=== PATIENT | male | born 1955 | race Caucasian/White ===

== ENCOUNTER 2017-10-29 14:02 | Observation (INO) | payer OTHER ==
[~2017-10-29] VITALS: Ht 170.2 cm; Wt 102.1 kg
--- NOTE | 2017-10-29 15:42 | ED CARDIAC/CP/PALPITATIONS ---
History of Present Illness General Chief Complaint: Chest Pain Stated Complaint: BACK, SIDE, CP Source: patient Exam Limitations: no limitations Vital Signs & Intake/Output Vital Signs & Intake/Output Vital Signs Date Time Temp Pulse Resp B/P B/P Pulse O2 O2 Flow FiO2 Mean Ox Delivery Rate 10/30 0100 97.7 88 20 149/85 98 Room Air 10/29 2036 96.7 94 20 153/95 97 Room Air 10/29 1812 98.7 100 20 128/80 97 Room Air 10/29 1644 98.7 99 20 136/90 95 Nasal 3.0L Cannula 10/29 1643 95 Room Air 3.0L 10/29 1423 96.5 68 20 160/90 97 Room Air ED Intake and Output 10/30 0000 10/29 1200 Intake Total Output Total Balance Patient 225 lb Weight Weight Reported by Patient Measurement Method Allergies Coded Allergies: MDX - PCN (penicillin) (PCN (PENICILLIN)) (Intermediate, NAUSEA 01/28/13) acetaminophen (From PERCOCET) (NAUSEA 10/29/17) oxycodone (From PERCOCET) (NAUSEA 10/29/17) Triage Note: PT TO ED C/O "BACK SPASMS" X A FEW HOURS. H/O SAME, "WORST I'VE EVER HAD". PAIN RADIATES FROM BACK TO FRONT OF RIGHT CHEST. TOOK 4 ADVIL AT 1000. EKG DONE. Triage Nurses Notes Reviewed? yes Onset: Abrupt Duration: day(s):, constant Timing: recent history Quality/Severity: moderate, severe Location: RIGHT SIDE CHEST, BACK Activities at Onset: none HPI: 62-year-old male comes into the emergency room for further evaluation of right- sided chest pain/right-sided back pain. Patient reports he was doing some heavy lifting yesterday. Been having severe muscle spasm and since yesterday. Hurts with certain movements. Denies any nausea vomiting shortness of breath fever chills cough and vomiting. (Feng Felton) Past History Travel History Traveled to [place] past 21 day No Medical History Any Pertinent Medical History? see below for history Cardiovascular: hypertension, hyperlipidemia Endocrine: diabetes Surgical History Surgical History: non-contributory Psychosocial History What is your primary language Faroese Tobacco Use: Never used ETOH Use: denies use Illicit Drug Use: denies illicit drug use Family History Hx Contributory? No (Feng Felton) Review of Systems Review of Systems Constitutional: Reports: no symptoms. EENTM: Reports: no symptoms. Respiratory: Reports: no symptoms. Cardiovascular: Reports: see HPI. GI: Reports: no symptoms. Genitourinary: Reports: no symptoms. Musculoskeletal: Reports: see HPI. Skin: Reports: no symptoms. Neurological/Psychological: Reports: no symptoms. Hematologic/Endocrine: Reports: no symptoms. Immunologic/Allergic: Reports: no symptoms. All Other Systems: Reviewed and Negative (Feng Felton) Physical Exam Physical Exam General Appearance: well developed/nourished, alert, awake Head: atraumatic, normal appearance Eyes: Bilateral: normal appearance. Ears, Nose, Throat: normal ENT inspection, hearing grossly normal Neck: normal inspection Respiratory: normal breath sounds, no respiratory distress Cardiovascular: regular rate/rhythm Back: normal inspection, right trapezius muscle tenderness Extremities: normal inspection Neurologic/Psych: awake, alert, oriented x 3 Skin: intact, normal color Core Measures ACS in differential dx? No CVA/TIA Diagnosis No Sepsis Present: No Sepsis Focused Exam Completed? No (Feng Felton) Progress Differential Diagnosis: AMI, costochondritis, musculoskeletal pain, pneumonia, pneumothorax, pulmonary embolism, PUD/GERD, unstable angina Plan of Care: Orders Procedure Date/time Status Heart Healthy Diet 10/30 B Active Patient Data 10/30 0112 Active Patient Data 10/[address] in observation 10/30 0019 Active ED Holding Orders 10/30 0019 Active Vital Signs 10/30 0019 Active Code Status 10/30 0019 Active EKG 10/29 2100 Active TROPONIN LEVEL 10/29 194 Complete BASIC METABOLIC PANEL 10/29 194 Complete TROPONIN LEVEL 10/29 1541 Complete COMPREHENSIVE METABOLIC PANEL 10/29 1541 Complete CBC WITHOUT DIFFERENTIAL 10/29 1541 Complete EKG 10/29 1403 Active Laboratory Tests 10/29/17 2150: Troponin I Cancelled 10/29/17 1940: Anion Gap 12, Estimated GFR > 60, BUN/Creatinine Ratio 29.2 H, Glucose 140 H, Calcium 8.7, Troponin I < 0.01 10/29/17 1554: Anion Gap 18 H, Estimated GFR 41 L, BUN/Creatinine Ratio 24.7, Glucose 202 H, Calcium 10.6 H, Total Bilirubin 0.6, AST 30, ALT 34, Alkaline Phosphatase 89, Troponin I < 0.01, Total Protein 7.8, Albumin 4.8, Globulin 3.0, Albumin/ Globulin Ratio 1.6, CBC w Diff NO MAN DIFF REQ, RBC 5.11, MCV 87.0, MCH 28.7, MCHC 33.0, RDW 13.2, MPV 8.4, Gran % 89.0 H, Lymphocytes % 7.8 L, Monocytes % 2.6, Eosinophils % 0.1, Basophils % 0.5, Absolute Granulocytes 8.1 H, Absolute Lymphocytes 0.7 L, Absolute Monocytes 0.2, Absolute Eosinophils 0, Absolute Basophils 0 Diagnostic Imaging: Viewed by Me: Radiology Read, CT Scan. Discussed w/RAD: Radiology Read, CT Scan. Radiology Impression: PATIENT: BECCA HUDSON PRESENT AGE: 62 PATIENT ACCOUNT NO: [id number] : 54 LOCATION: [facility] ORDERING PHYSICIAN: Feng SOMMER SERVICE DATE: 10/29/17 EXAM TYPE: RAD - XRY-CHEST XRAY, TWO VIEWS EXAMINATION: XR CHEST CLINICAL INFORMATION: Chest pain /back pain. COMPARISON: Chest PA 11/23/2006 TECHNIQUE: 2 views of the chest were obtained. FINDINGS: Both lungs are fairly well-expanded and clear. The heart size and pulmonary vascularity is normal. No gross bony abnormality seen. IMPRESSION: Unremarkable chest exam. DICTATED BY: Julio C Aranda MD DATE/TIME DICTATED:10/29/171852 CREATIVE SERVICES COORDINATOR:POOJA DATE/TIME TRANSCRIBED:1852 CONFIDENTIAL, DO NOT COPY WITHOUT APPROPRIATE AUTHORIZATION. < Electronically signed in Other Vendor System> SIGNED BY: Julio C Aranda MD [id number], PATIENT: BECCA HUDSON PRESENT AGE: 62 PATIENT ACCOUNT NO: [id number] : 54 LOCATION: ER ORDERING PHYSICIAN: Feng SOMMER SERVICE DATE: 10/29/17 EXAM TYPE: CAT - CT ABD & PELVIS ANGIOGRAM; CTA CHEST-AORTIC DISSECTION EXAMINATION: CT ANGIOGRAM CHEST, ABDOMEN AND PELVIS CLINICAL INFORMATION: Severe right-sided chest pain COMPARISON: 10/20/2007 TECHNIQUE: Multiple axial images were obtained through the chest, abdomen and pelvis before and after the administration of 95 mL of Optiray 320 intravenous contrast. MIP reformatted images were performed and reviewed. Sagittal and coronal reformats of the lumbar spine were performed. DLP : 2464 mGy-cm FINDINGS: No thoracic aortic aneurysm or dissection. No mediastinal hematoma. No pericardial or pleural effusion. No parenchymal consolidation, mass, or nodule. Airways are patent. No mediastinal, hilar, or axillary adenopathy. No abdominal aortic aneurysm or dissection. Mild atherosclerotic calcification. The liver, spleen, pancreas, kidneys, and adrenal glands are unremarkable. There is a left renal cyst which has increased in size. No hydronephrosis. Nephrograms are symmetric. Diverticulosis of the descending and sigmoid colon. No focal inflammatory process or obstruction. Normal appendix. The urinary bladder appears normal. The prostate is mildly enlarged with coarse calcifications. No adenopathy or free pelvic fluid. No acute fracture or suspicious bone lesion. There is moderate to severe degenerative disc disease throughout the lumbar spine with relative sparing of L5-S1. Posterior disc osteophyte complexes, most prominent at L4-L5, moderately narrowing the central canal. Endplate osteophytes and facet arthrosis contribute to neural foraminal narrowing bilaterally at L3-L4 and L4-L5. Cannot adequately assess for acute disc herniations with CT. IMPRESSION: No aortic aneurysm or dissection. No acute osseous abnormalities. Diverticulosis with no focal inflammatory process or obstruction. DICTATED BY: Toney Miguel MD DATE/ TIME DICTATED:10/29/172343 CREATIVE SERVICES COORDINATOR:POOJA DATE/TIME TRANSCRIBED: 10/29/172343 CONFIDENTIAL, DO NOT COPY WITHOUT APPROPRIATE AUTHORIZATION. < Electronically signed in Other Vendor System> SIGNED BY: Toney Miguel MD 10/30/17 0005 Initial ED EKG: normal QRS complex, rate (95), nonspecific ST T wave chg Repeat EKG: unchanged (Feng Felton) Departure Departure Disposition: STILL A PATIENT Condition: Stable Clinical Impression Primary Impression: Intractable back pain Secondary Impressions: Atypical chest pain Referrals: Abdoulaye Izaguirre MD (PCP/Family) Departure Forms: Customer Survey General Discharge Information Observation Note Spoke With: Gerri Robison MD Physician Advisor Notified: JENNIFER MORALES,JOSEPH Lomeli Place Patient In: Non-ED OBS Care Area Rationale for Observation: My rational for observation is as follows . Patient will require IV pain control. Patient was kept here in the emergency room for 10 hours and despite multiple doses of IV pain medication was still in significant pain. Difficulty with ambulation. Consider MRI of back with physical therapy consultation. (Feng Felton) PA/MIXING ENGINEER Co-Sign Statement Statement: ED Attending supervision documentation- [X] I saw and evaluated the patient. I have also reviewed all the pertinent lab results and diagnostic results. I agree with the findings and the plan of care as documented in the PA's/MIXING ENGINEER's documentation. [X] I have reviewed the ED Record and agree with the PA's/MIXING ENGINEER's documentation. [] Additions or exceptions (if any) to the PAs/MIXING ENGINEER's note and plan are summarized below: [Patient to be placed in telemetry observation for chest and back pain. Patient will need serial enzymes, pain control, PT evaluation.] (Jennifer MORALES,Joseph Lomeli) Critical Care Note Critical Care Note Critical Care Time: non-applicable (Feng Felton)
[2017-10-29 16:03] LABS: ABSOLUTE BASOPHIL COUNT 0 /CUMM (0.0-0.2); ABSOLUTE EOSINOPHIL COUNT 0 /CUMM (0.0-0.7); ABSOLUTE GRANULOCYTE CT 8.1 /CUMM (1.4-6.5); ABSOLUTE LYMPH COUNT 0.7 /CUMM (1.2-3.4); ABSOLUTE MONOCYTE COUNT 0.2 /CUMM (0.10-0.60); BASOPHIL % 0.5 % (0.0-2.0); EOSINOPHIL % 0.1 % (0-5); HEMATOCRIT 44.4 % (42-52); MEAN CORPUSCULAR HGB 28.7 PG (27.0-31.0); MEAN PLATELET VOLUME 8.4 FL (7.4-10.4); PLATELET COUNT 220 /CUMM (130-400); RBC DISTRIBUTION WIDTH 13.2 % (11.5-14.5); RED BLOOD CELL CT 5.11 /CUMM (4.70-6.10); WHITE BLOOD CELL COUNT 9.1 /CUMM (4.8-10.8)
--- NOTE | 2017-10-29 18:58 | RADIOLOGY REPORT ---
EXAMINATION: XR CHEST CLINICAL INFORMATION: Chest pain/back pain. COMPARISON: Chest PA 11/23/2006 TECHNIQUE: 2 views of the chest were obtained. FINDINGS: Both lungs are fairly well-expanded and clear. The heart size and pulmonary vascularity is normal. No gross bony abnormality seen. IMPRESSION: Unremarkable chest exam.
--- NOTE | 2017-10-30 00:05 | CT SCAN REPORT ---
EXAMINATION: CT ANGIOGRAM CHEST, ABDOMEN AND PELVIS CLINICAL INFORMATION: Severe right-sided chest pain COMPARISON: 10/20/2007 TECHNIQUE: Multiple axial images were obtained through the chest, abdomen and pelvis before and after the administration of 95 mL of Optiray 320 intravenous contrast. MIP reformatted images were performed and reviewed. Sagittal and coronal reformats of the lumbar spine were performed. DLP: 2464 mGy-cm FINDINGS: No thoracic aortic aneurysm or dissection. No mediastinal hematoma. No pericardial or pleural effusion. No parenchymal consolidation, mass, or nodule. Airways are patent. No mediastinal, hilar, or axillary adenopathy. No abdominal aortic aneurysm or dissection. Mild atherosclerotic calcification. The liver, spleen, pancreas, kidneys, and adrenal glands are unremarkable. There is a left renal cyst which has increased in size. No hydronephrosis. Nephrograms are symmetric. Diverticulosis of the descending and sigmoid colon. No focal inflammatory process or obstruction. Normal appendix. The urinary bladder appears normal. The prostate is mildly enlarged with coarse calcifications. No adenopathy or free pelvic fluid. No acute fracture or suspicious bone lesion. There is moderate to severe degenerative disc disease throughout the lumbar spine with relative sparing of L5-S1. Posterior disc osteophyte complexes, most prominent at L4-L5, moderately narrowing the central canal. Endplate osteophytes and facet arthrosis contribute to neural foraminal narrowing bilaterally at L3-L4 and L4-L5. Cannot adequately assess for acute disc herniations with CT. IMPRESSION: No aortic aneurysm or dissection. No acute osseous abnormalities. Diverticulosis with no focal inflammatory process or obstruction.
--- NOTE | 2017-10-30 00:57 | History & Physical ---
General Information and HPI Allergies/Medications Allergies: Coded Allergies: MDX - PCN (penicillin) (PCN (PENICILLIN)) (Intermediate, NAUSEA 01/28/13) acetaminophen (From PERCOCET) (NAUSEA 10/29/17) oxycodone (From PERCOCET) (NAUSEA 10/29/17) Past History Travel History Traveled to [place] past 21 day No Medical History Cardiovascular: hypertension, hyperlipidemia Endocrine: diabetes Surgical History Surgical History: non-contributory Past Family/Social History Psychosocial History ETOH Use: denies use Illicit Drug Use: denies illicit drug use Core Measures/Misc (01/14) Cerebrovascular Accident CVA/TIA Diagnosis: No Sepsis (View protocol) If YES complete Sepsis Event Note If YES complete Sepsis Event Note
--- NOTE | 2017-10-30 01:29 | History & Physical ---
Derick Logan 10/30/17 0124: General Information and HPI MD Statement: I have seen and personally examined BECCA HUDSON and documented this H&P. The patient is a 62 year old M who presented with a patient stated chief complaint of Source of Information: patient Exam Limitations: no limitations History of Present Illness: Mr Hudson is a 62 year old man w/ a PMHx of hypertension, hyperlipidemia, type 2 diabetes came to the emergency room with a chief concern of right-sided back pain that radiated to the anterior part of chest. He reported to have done some heavy lifting one day prior to presentation, and reported to had muscle spasm. He also spent a few hours off time outdoors. Pain is associated with movement, did not have any palpitations, dyspnea. Pain severity 10/10, radiation to anterior chest, relieved upon getting opiates in the ER, worse upon movement. Did not have any nausea vomiting or diarrhea. He had similar complaints in the last 5 years, and mostly attributed to know ergonomic working environment. Reported to have left shoulder surgery, after which he tends to use right upper extremity more. Nonsmoker, nonalcoholic. 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 Family history significant for coronary artery disease in mother at 63. Allergies/Medications Allergies: Coded Allergies: Penicillins (Intermediate, NAUSEA 10/30/17) acetaminophen (From PERCOCET) (NAUSEA 10/29/17) oxycodone (From PERCOCET) (NAUSEA 10/29/17) Home Med list Atorvastatin Calcium (Lipitor) 10 MG TABLET 1 TAB PO DAILY HEART HEALTH ( Reported) Lisinopril 20 MG TABLET 1 TAB PO DAILY HTN (Reported) Metformin HCl 1,000 MG TABLET 1 TAB PO BID DIABETES (Reported) Compliance With Home Meds: GOOD Observation Initial Note - I have personally examined BECCA HUDSON on 10/30/17 at 0607. The disposition of BECCA HUDSON is uncertain at this time and before a determination can be made, he requires a period of observation for the following reasons back pain Past History Travel History Traveled to [place] past 21 day No Medical History Cardiovascular: hypertension, hyperlipidemia Endocrine: diabetes Surgical History Surgical History: non-contributory Past Family/Social History Family History Relations & Conditions if any MOTHER (CAD). Psychosocial History ETOH Use: denies use Illicit Drug Use: denies illicit drug use Review of Systems Review of Systems Constitutional: Reports: see HPI. Denies: chills, fever. EENTM: Denies: eye pain. Cardiovascular: Denies: chest pain, orthopena, palpitations. Respiratory: Denies: cough, orthopnea, short of breath. GI: Denies: abdominal pain, melena, changes in stool. Genitourinary: Denies: dysuria. Musculoskeletal: Reports: back pain, muscle pain, muscle stiffness. Denies: joint pain. Skin: Denies: change in skin color, jaundice. Exam & Diagnostic Data Last 24 Hrs of Vital Signs/I&O Vital Signs Date Time Temp Pulse Resp B/P B/P Pulse O2 O2 Flow FiO2 Mean Ox Delivery Rate 10/30 0100 97.7 88 20 149/85 98 Room Air 10/29 2036 96.7 94 20 153/95 97 Room Air 10/29 1812 98.7 100 20 128/80 97 Room Air 10/29 1644 98.7 99 20 136/90 95 Nasal 3.0L Cannula 10/29 1643 95 Room Air 3.0L 10/29 1423 96.5 68 20 160/90 97 Room Air Intake & Output 10/30 0800 07/ 0000 10/29 1600 Intake Total Output Total Balance Patient 225 lb Weight Weight Reported by Patient Measurement Method Physical Exam General Appearance Alert, Oriented X3, Cooperative, No Acute Distress Skin No Rashes, No Breakdown Skin Temp/Moisture Exam: Warm/Dry Sepsis Skin Exam (color): Normal for Ethnicity HEENT Atraumatic, PERRLA, EOMI, Mucous Membr. moist/pink Neck Supple, No JVD, No thryomegaly Lymphatic Cervical nl Cardiovascular Regular Rate, Normal S1, Normal S2, No Murmurs Lungs Clear to Auscultation, Normal Air Movement Abdomen Normal Bowel Sounds, Soft, No Tenderness, No Hepatospenomegaly Neurological Normal Gait, Normal Speech, Strength at 5/5 X4 Ext, Normal Tone, Sensation Intact, Cranial Nerves 3-12 NL, Reflexes 2+, tenderness in the upper back. Extremities No Clubbing, No Cyanosis, No Edema, Normal Pulses Vascular Pulses Symmetrical Body Front and Back (Adult) 1) tenderness below the R scapula Last 24 Hrs of Labs/Oliver: Laboratory Tests 10/29/17 2150: Troponin I Cancelled 10/29/17 1940: Anion Gap 12, Estimated GFR > 60, BUN/Creatinine Ratio 29.2 H, Glucose 140 H, Calcium 8.7, Troponin I < 0.01 10/29/17 1554: Anion Gap 18 H, Estimated GFR 41 L, BUN/Creatinine Ratio 24.7, Glucose 202 H, Calcium 10.6 H, Total Bilirubin 0.6, AST 30, ALT 34, Alkaline Phosphatase 89, Troponin I < 0.01, Total Protein 7.8, Albumin 4.8, Globulin 3.0, Albumin/ Globulin Ratio 1.6, CBC w Diff NO MAN DIFF REQ, RBC 5.11, MCV 87.0, MCH 28.7, MCHC 33.0, RDW 13.2, MPV 8.4, Gran % 89.0 H, Lymphocytes % 7.8 L, Monocytes % 2.6, Eosinophils % 0.1, Basophils % 0.5, Absolute Granulocytes 8.1 H, Absolute Lymphocytes 0.7 L, Absolute Monocytes 0.2, Absolute Eosinophils 0, Absolute Basophils 0 Diagnostic Data EKG Results Normal sinus rhythm, ST-T wave changes. Assessment/Plan Assessment: Mr Hudson is a 62 year old man w/ a PMHx of hypertension, hyperlipidemia, type 2 diabetes came to the emergency room with a chief concern of right-sided back pain that radiated to the chest, likely musculoskeletal in origin. At the time of admission her temperature and 96.5, pulse rate 68, respiration 20 , blood pressure 160/90, pulse ox 95% on 3 L. Pertinent lab findings: WBC 9.1, hemoglobin 14.7, platelet count 220 Sodium 142, potassium 4.8, bicarbonate 21, anion gap 18-->12, BUN 42, creatinine 1.7--> 1.2, glucose 202. Troponin I-0.01, 0.01. AST 30, ALT 34, alkaline phosphatase 89. EKG revealed Normal sinus rhythm, no ST-T wave changes. Chest x-ray:Unremarkable chest exam. CT abdomen pelvis angiogram, CTA chest for aortic dissection:No aortic aneurysm or dissection. No acute osseous abnormalities.Diverticulosis with no focal inflammatory process or obstruction. Problem list: #1 musculoskeletal spasm #2 history of hypertension #3 history of hyperlipidemia #4 history of type 2 diabetes #5 JOSE Etiology in his case is likely musculoskeletal in origin probably from prolonged overusage, or poor ergonomics at work. Also reported to have lifted heavy objects in the last 24 hours, which might have exacerbated the clinical situation. No history of any rheumatological diseases, and radiological findings were negative for dissection or PE. Ruled out for ACS. Plan: -Observe the patient on [facility] floor -Continue tramadol every 8 hours, Lidoderm patch, and gabapentin -po Dilaudid, if needed. -Continue home dose of lisinopril -Vitals every shift -Occupational therapy evaluation -If the patient continues to have symptomatic relief, we'll discharge the patient with the recommendation to follow up with physical therapy and occupational therapy. Checklist: -DVT prophylaxis-subcutaneous heparin -GI prophylaxis-Protonix when necessary. -Consult-none. As Ranked By This Provider Problem List: 1. Intractable back pain Core Measures/Misc (01/14) Acute Coronary Syndrome ACS Diagnosis: No Congestive Heart Failure Congestive Heart Failure Diagnosis No Cerebrovascular Accident CVA/TIA Diagnosis: No VTE (View Protocol) VTE Risk Factors Acute Medical Illness No Mechanical VTE Prophylaxis d/t N/A MechProphylax Ordered No VTE Pharm Prophylaxis d/t NA PharmProphylax ordered Sepsis (View protocol) Sepsis Present: No If YES complete Sepsis Event Note If YES complete Sepsis Event Note Gerri Robison MD 10/30/17 0204: Core Measures/Misc (01/14) Sepsis (View protocol) If YES complete Sepsis Event Note If YES complete Sepsis Event Note Attending MD Review Statement Attending Statement Attending MD Statement: examined this patient, discuss w/resident/PA/SAND CUTTING MACHINE OPERATOR, agreed w/resident/PA/SAND CUTTING MACHINE OPERATOR, reviewed EMR data (avail) Attending Assessment/Plan: 62M PMH HTN, HLD, T2DM presenting with intractable upper right back pain. Patient has a history of intermittent episodes of stabbing pain in his right upper back near his scapula. He has seen his PCP and a chiroprator for this pain, and has not found a solution. The pain is located at the bottom of his right scapula, and today it radiates around his right ribs to his right chest. It is worsened by movement of his RUE. It is not associated with exertion, SOB, palpitations, diaphoresis, lightheadedness. He reports that he has an odd desk configuration at work, and this may be contributing to the pain. CTPMP has no reports of opioid use. He tried Flexeril once after shoulder surgery and it gave him upset GI. He has been eating and drinking less due to the pain, and was found to have a creatinine 1.7 that improved to 1.2 after IV fluids. EKG is NSR with no acute ST/T changes. Also reports chronic mild polyneuropathic pain in both legs secondary to diabetic neuropathy. 1. Intractable right upper back pain 2. JOSE 3. Diabetic polyneuropathy Plan - Observation in general medicine - Will hold on NSAIDs due to JOSE - Capsaicin cream to area - Start Gabapentin 100mg and monitor for adverse effects - Tylenol PRN - Tramadol PRN - Occupational therapy consult - Monitor renal function - Continue home medications - DVT PPx
[2017-10-30] MEDS ORDERED: LISINOPRIL20 M1 PO (02:32)
[2017-10-30] MEDS ORDERED: METFORMIN HCL1000 M1 PO (02:33)
[2017-10-30] MEDS ORDERED: LIPITOR10 M1 PO (02:33)
[2017-10-30 03:07] VITALS: BP 152/98
--- NOTE | 2017-10-30 06:37 | Event Note ---
Event Note Event Note: Patient seen and examined today. He is a new admitted for intractable right- sided back and chest pain. The pain gets worse on lifting, is tender to palpation, worse on any movement as well as on breathing. The patient rates the pain currently at 7/10. He was given ketorolac at midnight, Dilaudid 0.6 mg once yesterday at 9 PM, morphine 4 mg once yesterday at 6 PM and another Dilantin 1 mg yesterday at 3 PM. We started patient on Vicodin but by the afternoon, pain has not abated so we started the patient on Flexeril 5 mg 3 times a day and Medrol 4 mg every 4. We DC'd the patient's Ultram. We will monitor. If pain does not lessen we will consider orthopedic consult. Of note patient has had about 4-5 admissions in hospitals, most recently at [facility] 6 weeks ago for the same pain. The patient has never taken any opiates just muscle use which was given to him by his chiropractor. Patient further has evidence of AK I with a creatinine over his baseline of 1.0. We will hold any NSAIDs for now. We will continue normal saline at a rate of 50 mL per hour. Follow-up BEP tomorrow. Patient was also started on insulin medium dose from low dose as he had high blood sugars.
[2017-10-30 06:42] VITALS: BP 154/91
--- NOTE | 2017-10-30 12:14 | PN- Att Addend ---
Attending Addendum Attending Brief Note Patient seen and examined, still complained off right sided back pain. Says that the current pain medicine has not helped much. He did receive Toradol and steroids in the emergency room. Vital Signs Date Time Temp Pulse Resp B/P B/P Pulse O2 O2 Flow FiO2 Mean Ox Delivery Rate 10/30 0802 106 132/85 10/30 0642 98.3 102 20 154/91 95 Room Air 10/30 0307 98.5 104 20 152/98 94 Room Air 10/30 0100 97.7 88 20 149/85 98 Room Air 10/29 2036 96.7 94 20 153/95 97 Room Air 10/29 1812 98.7 100 20 128/80 97 Room Air 10/29 1644 98.7 99 20 136/90 95 Nasal 3.0L Cannula 10/29 1643 95 Room Air 3.0L 10/29 1423 96.5 68 20 160/90 97 Room Air on exam; aox3, nad. cv; s1,s2, rrr resp; clear abd; soft, nt, bs+ ext; no edema ms: + + tenderness on right upper back. Laboratory Tests 10/30 10/29 10/29 0634 2150 1940 Chemistry Sodium (137 - 145 mmol/L) 140 141 Potassium (3.5 - 5.1 mmol/L) 5.0 4.7 Chloride (98 - 107 mmol/L) 105 107 Carbon Dioxide (22 - 30 mmol/L) 20 L 22 Anion Gap (5 - 16) 15 12 BUN (9 - 20 mg/dL) 36 H 35 H Creatinine (0.7 - 1.2 mg/dL) 1.4 H 1.2 Estimated GFR (>60 ml/min) 51 L > 60 BUN/Creatinine Ratio (7 - 25 %) 25.7 H 29.2 H Glucose (65 - 99 mg/dL) 140 H Calcium (8.4 - 10.2 mg/dL) 8.7 Troponin I (<0.11 ng/ml) Cancelled < 0.01 10/29 1554 Chemistry Sodium (137 - 145 mmol/L) 142 Potassium (3.5 - 5.1 mmol/L) 4.8 Chloride (98 - 107 mmol/L) 103 Carbon Dioxide (22 - 30 mmol/L) 21 L Anion Gap (5 - 16) 18 H BUN (9 - 20 mg/dL) 42 H Creatinine (0.7 - 1.2 mg/dL) 1.7 H Estimated GFR (>60 ml/min) 41 L BUN/Creatinine Ratio (7 - 25 %) 24.7 Glucose (65 - 99 mg/dL) 202 H Calcium (8.4 - 10.2 mg/dL) 10.6 H Total Bilirubin (0.2 - 1.3 mg/dL) 0.6 AST (17 - 59 U/L) 30 ALT (21 - 72 U/L) 34 Alkaline Phosphatase (< 127 U/L) 89 Troponin I (<0.11 ng/ml) < 0.01 Total Protein (6.3 - 8.2 g/dL) 7.8 Albumin (3.5 - 5.0 g/dL) 4.8 Globulin (1.9 - 4.2 gm/dL) 3.0 Albumin/Globulin Ratio (1.1 - 2.2 %) 1.6 Hematology CBC w Diff NO MAN DIFF REQ WBC (4.8 - 10.8 /CUMM) 9.1 RBC (4.70 - 6.10 /CUMM) 5.11 Hgb (14.0 - 18.0 G/DL) 14.7 Hct (42 - 52 %) 44.4 MCV (80.0 - 94.0 FL) 87.0 MCH (27.0 - 31.0 PG) 28.7 MCHC (33.0 - 37.0 G/DL) 33.0 RDW (11.5 - 14.5 %) 13.2 Plt Count (130 - 400 /CUMM) 220 MPV (7.4 - 10.4 FL) 8.4 Gran % (42.2 - 75.2 %) 89.0 H Lymphocytes % (20.5 - 51.1 %) 7.8 L Monocytes % (1.7 - 9.3 %) 2.6 Eosinophils % (0 - 5 %) 0.1 Basophils % (0.0 - 2.0 %) 0.5 Absolute Granulocytes (1.4 - 6.5 /CUMM) 8.1 H Absolute Lymphocytes (1.2 - 3.4 /CUMM) 0.7 L Absolute Monocytes (0.10 - 0.60 /CUMM) 0.2 Absolute Eosinophils (0.0 - 0.7 /CUMM) 0 Absolute Basophils (0.0 - 0.2 /CUMM) 0 A/P; 62 y/o M with pmh sig for hypertension, hyperlipidemia, type 2 diabetes, DJD, is placed on med Observation with right sided back pain. CT abd/pelvis shows there is moderate to severe degenerative disc disease throughout the lumbar spine with relative sparing of L5-S1. Posterior disc osteophyte complexes , most prominent at L4-L5, moderately narrowing the central canal. Endplate osteophytes and facet arthrosis contribute to neural foraminal narrowing bilaterally at L3-L4 and L4-L5. Pain is not well controlled. I will add Medrol Dosepak. I will stop the tramadol and start Vicodin. Patient also had mild HPI on admission. Creatinine improved on repeat blood work but this morning it is again 1.4. I will hold the lisinopril. I will start the patient on gentle IV hydration with IV fluids. Continue the rest of the management. Patient on heparin subcutaneous for DVT prophylaxis.
[2017-10-30 13:54] VITALS: BP 126/68
[2017-10-30 23:02] VITALS: BP 122/66
[2017-10-31 06:22] VITALS: BP 160/96
--- NOTE | 2017-10-31 08:42 | PN- Housestaff ---
See Addendum Subjective Follow-up For: INTRACTABLE BACK PAIN Subjective: Patient seen and examined. He states that his back pain is no better, still at 8/10. He has no other symptoms other than the back pain which he says is radiating to a lesser extent around the shoulder to the front of the chest. Patient has stable vitals. He is surrounded by family who is asking about the patient's current status and plan. Overnight patient received 1 dose of morphine 2 mg she said did not help. Review of Systems Constitutional: Reports: no symptoms. EENTM: Reports: no symptoms. Cardiovascular: Reports: no symptoms. Respiratory: Reports: no symptoms. Gastrointestinal: Reports: no symptoms. Musculoskeletal: Reports: back pain, joint pain. Skin: Reports: no symptoms. Neurological/Psychological: Reports: no symptoms. Hematologic/Endocrine: Reports: no symptoms. Immunologic/Allergic: Reports: no symptoms. Objective Last 24 Hrs of Vital Signs/I&O Vital Signs Date Time Temp Pulse Resp B/P B/P Pulse O2 O2 Flow FiO2 Mean Ox Delivery Rate 10/31 0622 98.0 78 20 160/96 94 10/30 2302 97.9 90 18 122/66 97 Room Air 10/30 1354 98.2 93 18 126/68 96 Room Air Intake & Output 10/31 1600 10/31 0800 10/31 0000 Intake Total 500 800 Output Total Balance 500 800 Intake, IV 20 400 Intake, Oral 480 400 Number 0 Bowel Movements Physical Exam General Appearance: Alert, Oriented X3, Cooperative, No Acute Distress Skin: No Rashes, No Breakdown, No Significant Lesion Skin Temp/Moisture Exam: Warm/Dry Sepsis Skin Exam (color): Normal for Ethnicity HEENT: Atraumatic, EOMI, Mucous Membr. moist/pink Cardiovascular: Regular Rate, Normal S1, Normal S2, No Murmurs Lungs: Clear to Auscultation, Normal Air Movement Abdomen: Normal Bowel Sounds, Soft, No Tenderness Neurological: Normal Gait, Normal Speech Extremities: No Clubbing, No Cyanosis, No Edema, Normal Pulses, No Tenderness/ Swelling Vascular: Normal Pulses, Pulses Symmetrical Other Physical Findings: Patient has tenderness to palpation mildly in the front right chest and also in the back right side. On passive movement of his shoulder, no pain elicited. Current Medications: Current Medications Sig/Martine Start time Last Medication Dose Route Stop Time Status Admin Atorvastatin Calcium 10 MG DAILY 10/30 0900 AC 10/31 PO 0850 Cyclobenzaprine HCl 10 MG TID PRN 10/31 1103 AC PO Cyclobenzaprine HCl 5 MG TID PRN 10/30 1530 DC 10/31 PO 0510 Docusate Sodium 100 MG DAILY 10/31 1057 AC PO Gabapentin 100 MG Q8 10/30 0600 AC 10/31 PO 0510 Heparin Sodium 5,000 UNIT Q8 10/30 0600 AC 10/31 (Porcine) SC 0510 Hydrocodone Bitart/ 2 TAB Q6P PRN 10/30 1000 DC 10/31 Acetaminophen PO 0850 Hydromorphone HCl 2 MG ONCE ONE 10/31 1200 AC PO 10/31 1201 Insulin Aspart 0 TIDAC 10/30 0800 AC 10/30 SC 1700 Lidocaine 1 PAT DAILY 10/30 0900 AC 10/31 TOP 0850 Lisinopril 20 MG DAILY 11/01 0900 AC PO Lisinopril 20 MG DAILY 10/30 0900 DC 10/30 PO 0802 Methylprednisolone 4 MG 4 TIMES/DAY 10/30 0954 AC 10/31 PO 0850 Morphine Sulfate 2 MG ONCE ONE 10/30 2045 DC 10/30 IV 10/30 204 2050 Ondansetron HCl 4 MG Q8P PRN 10/30 0230 AC IV Polyethylene Glycol 17 GM DAILY 10/31 1057 AC PO Prochlorperazine 10 MG .STK-MED ONE 10/30 1712 DC PO 10/30 1713 Senna 187 MG AT BEDTIME 10/31 1100 AC PO Sodium Chloride 1,000 ML ONCE ONE 10/30 0230 DC 10/30 IV 10/30 2229 0253 Last 24 Hrs of Lab/Oliver Results Last 24 Hrs of Labs/Mics: Laboratory Tests 10/31/17 0620: Anion Gap 11, Estimated GFR > 60, BUN/Creatinine Ratio 23.3 Assessment/Plan Assessment: Mr Spaulding is a 62 year old man w/ a PMHx of hypertension, hyperlipidemia, type 2 diabetes came to the emergency room with a chief concern of right-sided back pain that radiated to the chest, likely musculoskeletal in origin. At the time of admission her temperature and 96.5, pulse rate 68, respiration 20 , blood pressure 160/90, pulse ox 95% on 3 L. Pertinent lab findings at admission: WBC 9.1, hemoglobin 14.7, platelet count 220 Sodium 142, potassium 4.8, bicarbonate 21, anion gap 18-->12, BUN 42, creatinine 1.7--> 1.2, glucose 202. Troponin I-0.01, 0.01. AST 30, ALT 34, alkaline phosphatase 89. EKG revealed Normal sinus rhythm, no ST-T wave changes. Chest x-ray:Unremarkable chest exam. CT abdomen pelvis angiogram, CTA chest for aortic dissection:No aortic aneurysm or dissection. No acute osseous abnormalities.Diverticulosis with no focal inflammatory process or obstruction. Patient does have evidence of arthropathy moderate to severe degenerative changes at L3 to L5 Problem list: #1 musculoskeletal spasm/degenerative spinal changes causing radiculopathy #2 history of hypertension #3 history of hyperlipidemia #4 history of type 2 diabetes #5 JOSE Etiology in his case is likely musculoskeletal in origin probably from prolonged overusage, his severe degenerative changes of the spine which is the most likely cause, or poor ergonomics at work. Also reported to have lifted heavy objects in the last 24 hours, which might have exacerbated the clinical situation. No history of any rheumatological diseases, and radiological findings were negative for dissection or PE. Ruled out for ACS. Plan: -Continue to the patient on [facility] floor -Patient received 1 dose of morphine 2 mg overnight and as of yesterday was on Vicodin and 5 mg Flexeril 3 times a day. Patient notes pain is no better so we will increase Flexeril to 10 mg 3 times a day and institute Dilaudid 2 mg every 6 when necessary by mouth. We will continue Medrol dose pack which was started yesterday. -If on this current regimen the patient feels better, he will be discharged on the Flexeril, Dilaudid, Medrol. Bowel regimen has been ordered as well as he is on steroids. Patient will follow-up with Dr. Alanis for potential open/close MRI. If patient does not feel better on this regimen, we can do close MRI here tomorrow as long as patient agrees as he is claustrophobic. -Now the patient's AK I has mostly resolved with a creatinine of 1.2 today, we can continue home dose of lisinopril -Patient noted right-sided shoulder pain and when offered right shoulder x-ray declines stating that he believes that it is the back pain that is the cause of his radiating pain to the shoulder. -Vitals every shift -In the patient's discharge materials we have included referral to Dr. Church who the family knows for possible surgery. -Patient states that he would like to continue with his chiropractor who he was doing physical therapy with. DVT prophylaxis with Alps and subcutaneous heparin Full code Diet Problem List: 1. Atypical chest pain 2. Intractable back pain Pain Ratin Pain Location: Right back extending over the shoulder to the right chest Pain Goal: Pain 4 or less Pain Plan: Flexeril, Medrol, Dilaudid Tomorrow's Labs & Rationales: None
[2017-10-31] MEDS ORDERED: MIRALAX17 G1 PO ×2 (11:06→13:19)
[2017-10-31] MEDS ORDERED: SENNA S TABLET1 EACH PO ×2 (11:06→13:19)
[2017-10-31] MEDS ORDERED: MEDROL4 M2 PO (11:10)
[2017-10-31] MEDS ORDERED: CYCLOBENZAPRINE5 M2 PO (11:10)
[2017-10-31] MEDS ORDERED: DILAUDID2 M1 PO (11:10)
[2017-10-31] MEDS ORDERED: NEURONTIN100 M1 PO ×2 (11:11→11:12)
--- NOTE | 2017-10-31 11:16 | Patient Discharge Instructions ---
Discharge Instructions General Discharge Information You were seen/treated for: intractable back pain Special Instructions: 1. please follow up with your PCP in one week 2. please follow up with Dr. Alanis in one week 3. take all medications as directed Diet Continue normal diet: Yes Activity Full Activity/No Limits: Yes Acute Coronary Syndrome Inclusion Criteria At DC or during hospital stay patient has or had the following: ACS DIAGNOSIS No Discharge Core Measures Meds if any: Prescribed or Continued at Discharge Meds if any: NOT Prescribed or Continued at Discharge Congestive Heart Failure Inclusion Criteria At DC or during hospital stay patient has or had the following: CHF DIAGNOSIS No Discharge Core Measures Meds if any: Prescribed or Continued at Discharge Meds if any: NOT Prescribed or Continued at Discharge Cerebrovascular accident Inclusion Criteria At DC or during hospital stay patient has or had the following: CVA/TIA Diagnosis No Discharge Core Measures Meds if any: Prescribed or Continued at Discharge Meds if any: NOT Prescribed or Continued at Discharge Venous thromboembolism Inclusion Criteria VTE Diagnosis No VTE Type NONE VTE Confirmed by (Test) NONE Discharge Core Measures - Per Current guidelines, there needs to be overlap - treatment for the first 5 days of Warfarin therapy. - If discharged on Warfarin prior to 5 days of - overlap therapy, the patient will need to be - assessed for post discharge needs including - *Post discharge parental anticoagulation - *Warfarin and/or parental anticoagulation education - *Follow up date to check INR post discharge At least 5 days overlap therapy as Inpatient No Meds if any: Prescribed or Continued at Discharge Note: Overlap Therapy is Warfarin and Anticoagulant Meds if any: NOT Prescribed or Continued at Discharge
[2017-10-31 14:16] VITALS: BP 144/98
[2017-10-31 22:36] VITALS: BP 142/98
[2017-11-01 06:55] VITALS: BP 156/94
[2017-11-01 08:28] VITALS: BP 138/82
--- NOTE | 2017-11-01 08:49 | PN- Housestaff ---
Beatris MORALES,Serena 11/01/17 0848: Subjective Follow-up For: Intractable back pain Subjective: Patient was seen and examined. He states that his pain does feel slightly better, good enough to be able to leave today. He states that the pain felt like a knife in his back before but now feels more like a knuckle. Overnight the patient received 2 mg of morphine at 5 PM and at 1 AM and 1 mg of Dilaudid at 4 PM. The patient also states that he has a headache this morning. The patient is eager to receive his open MRI and would like to do so before his vacation on Sunday. Review of Systems Constitutional: Reports: no symptoms. Cardiovascular: Reports: no symptoms. Respiratory: Reports: no symptoms. Gastrointestinal: Reports: no symptoms. Musculoskeletal: Reports: back pain, joint pain. Neurological/Psychological: Reports: headache. Objective Last 24 Hrs of Vital Signs/I&O Vital Signs Date Time Temp Pulse Resp B/P B/P Pulse O2 O2 Flow FiO2 Mean Ox Delivery Rate 11/02 827 108 138/82 11/01 08 Room Air 11/01 0655 98.3 72 18 156/94 94 10/31 2236 98.4 74 18 142/98 94 Room Air 10/31 1416 98.2 73 18 144/98 93 Room Air Intake & Output 11/01 1600 11/01 0800 11/01 0000 Intake Total 360 400 Output Total Balance 360 400 Intake, Oral 360 400 Physical Exam General Appearance: Alert, Oriented X3, Cooperative, No Acute Distress Skin: No Rashes Skin Temp/Moisture Exam: Warm/Dry Cardiovascular: Regular Rate, Normal S1, Normal S2, No Murmurs Lungs: Clear to Auscultation, Normal Air Movement Abdomen: Normal Bowel Sounds, Soft, No Tenderness Neurological: Normal Speech Extremities: No Clubbing, No Cyanosis, No Edema, Normal Pulses Current Medications: Current Medications Sig/Martine Start time Last Medication Dose Route Stop Time Status Admin Acetaminophen 500 MG ONCE ONE 11/01 0845 DC PO 11/01 945 Atorvastatin Calcium 10 MG DAILY 10/30 09 AC 11/01 PO 0824 Cyclobenzaprine HCl 10 MG TID PRN 10/31 1103 AC 10/31 PO 210 Cyclobenzaprine HCl 5 MG TID PRN 10/30 1530 DC 10/31 PO 0510 Docusate Sodium 100 MG DAILY 10/31 1057 AC 11/01 PO 0831 Gabapentin 100 MG Q8 10/30 0600 AC 11/01 PO 0509 Heparin Sodium 5,000 UNIT Q8 10/30 0600 AC 11/01 (Porcine) SC 0509 Hydrocodone Bitart/ 2 TAB Q6P PRN 10/30 1000 DC 10/31 Acetaminophen PO 0850 Hydromorphone HCl 2 MG Q6P PRN 11/01 0945 AC PO Hydromorphone HCl 1 MG ONCE ONE 10/31 1615 DC PO 10/31 1616 Hydromorphone HCl 2 MG ONCE ONE 10/31 1200 DC 10/31 PO 10/31 1201 1126 Insulin Aspart 0 TIDAC 10/30 0800 AC 10/31 SC 1746 Lidocaine 1 PAT DAILY 10/30 0900 AC 11/01 TOP 0828 Lisinopril 20 MG DAILY 11/01 0900 AC 11/01 PO 0828 Methylprednisolone 4 MG 4 TIMES/DAY 10/30 0954 AC 11/01 PO 0828 Morphine Sulfate 2 MG ONCE ONE 11/01 0100 DC 11/01 IV 11/01 0101 0108 Morphine Sulfate 2 MG ONCE ONE 10/31 1745 DC 10/31 IV 10/31 1746 1748 Ondansetron HCl 4 MG Q8P PRN 10/30 0230 AC IV Polyethylene Glycol 17 GM DAILY 10/31 1057 AC 10/31 PO 1148 Senna 187 MG AT BEDTIME 10/31 1100 AC 10/31 PO 2101 Assessment/Plan Assessment: Mr Spaulding is a 62 year old man w/ a PMHx of hypertension, hyperlipidemia, type 2 diabetes came to the emergency room with a chief concern of right-sided back pain that radiated to the chest, likely musculoskeletal in origin. At the time of admission her temperature and 96.5, pulse rate 68, respiration 20 , blood pressure 160/90, pulse ox 95% on 3 L. Pertinent lab findings at admission: WBC 9.1, hemoglobin 14.7, platelet count 220 Sodium 142, potassium 4.8, bicarbonate 21, anion gap 18-->12, BUN 42, creatinine 1.7--> 1.2, glucose 202. Troponin I-0.01, 0.01. AST 30, ALT 34, alkaline phosphatase 89. EKG revealed Normal sinus rhythm, no ST-T wave changes. Chest x-ray:Unremarkable chest exam. CT abdomen pelvis angiogram, CTA chest for aortic dissection:No aortic aneurysm or dissection. No acute osseous abnormalities.Diverticulosis with no focal inflammatory process or obstruction. Patient does have evidence of arthropathy moderate to severe degenerative changes at L3 to L5 Problem list: #1 musculoskeletal spasm/degenerative spinal changes causing radiculopathy #2 history of hypertension #3 history of hyperlipidemia #4 history of type 2 diabetes #5 JOSE Etiology in his case is likely musculoskeletal in origin probably from prolonged overusage, his severe degenerative changes of the spine which is the most likely cause, or poor ergonomics at work. Also reported to have lifted heavy objects in the last 24 hours, which might have exacerbated the clinical situation. No history of any rheumatological diseases, and radiological findings were negative for dissection or PE. Ruled out for ACS. Plan: -Discharge the patient today as he is stable and his pain is better controlled -Patient dose of Flexeril was increased from 5 mg 3 times daily to 10 mg 3 times daily yesterday. We also started him on p.o. Dilaudid 2 mg every 6. The plan was that he was supposed to receive 1 dose and if he was better, discharged him yesterday. However the patient's pain was not under control and he received another Dilaudid 1 mg at 4 PM, 2 mg of morphine at 5 PM, and 2 mg of morphine at 1 AM. He states that the 1 AM morphine really did help him to sleep. -He will be discharged on the Flexeril, Dilaudid, Medrol. Bowel regimen has been ordered as well as he is on steroids. Patient will follow-up with Dr. Alanis for potential open MRI. -Now the patient's AK I has mostly resolved, we continued home dose of lisinopril -Patient noted right-sided shoulder pain and when offered right shoulder x-ray declines stating that he believes that it is the back pain that is the cause of his radiating pain to the shoulder. -Vitals every shift -In the patient's discharge materials we have included referral to Dr. Alanis who the family knows for possible surgery. -Patient has been counseled to abstain from chiropractor until after given the go ahead by orthopedics. DVT prophylaxis with Alps and subcutaneous heparin Full code Diet Problem List: 1. Intractable back pain Pain Ratin Pain Location: Back Pain Goal: Pain 4 or less Pain Plan: Dilaudid 2 mg p.o. every 6, Flexeril, Medrol Dosepak for his back pain Tomorrow's Labs & Rationales: None Li Mtz MD 11/01/17 1116: Attending MD Review Statement Attending Statement Attending MD Statement: examined this patient, discuss w/resident/PA/FIELD ADJUSTER, agreed w/resident/PA/FIELD ADJUSTER, discussed with family, reviewed EMR data (avail), discussed with nursing, discussed with case mgmt, reviewed images, amended to note Attending Assessment/Plan: Patient seen and examined, still having back pain but it is in a tolerable range. Better than before. Vital Signs Date Time Temp Pulse Resp B/P B/P Pulse O2 O2 Flow FiO2 Mean Ox Delivery Rate 11/02 0728 108 138/82 11/01 0800 Room Air 11/01 0655 98.3 72 18 156/94 94 10/31 2236 98.4 74 18 142/98 94 Room Air 10/31 1416 98.2 73 18 144/98 93 Room Air on exam; aox3, nad. cv; s1, s2, rrr resp; clear abd; soft, nt, bs+ ext: no edema no labs. A/P; 62 y/o M with pmh sig for hypertension, hyperlipidemia, type 2 diabetes, DJD, is placed on med Observation with right sided back pain. CT abd/pelvis shows there is moderate to severe degenerative disc disease throughout the lumbar spine with relative sparing of L5-S1. Posterior disc osteophyte complexes , most prominent at L4-L5, moderately narrowing the central canal. Endplate osteophytes and facet arthrosis contribute to neural foraminal narrowing bilaterally at L3-L4 and L4-L5. Pain controlled with Dilaudid, Flexeril as well as Medrol Dosepak. Patient needs to have an MRI but unfortunately he is claustrophobic and cannot tolerate a closed MRI. He will have to follow-up with Dr. Michael Rascon for an open MRI. I did speak with Dr. Alanis this morning. Patient to see 1 of the [facility] operations specialist and his group next week. Open MRI can be arranged through their office. We try to arrange that from here but unfortunately his insurance will require prior authorization which would have to be done at the doctor's office. Otherwise he will be continued on the rest of his medications. We will also add bowel regimen as needed. Patient otherwise medically stable for discharge home today. D/W patient's at bedside.
[2017-11-01] MEDS ORDERED: DILAUDID2 M1 PO (10:04)
[2017-11-01] MEDS ORDERED: MIRALAX17 G1 PO (10:04)
[2017-11-01] MEDS ORDERED: SENNA S TABLET1 EACH PO (10:04)
[2017-11-01] MEDS ORDERED: CYCLOBENZAPRINE5 M2 PO (10:04)
[2017-11-01] MEDS ORDERED: MEDROL4 M2 PO (10:04)
== END 2017-11-01 11:10 ==
LOC: ERH 14:02 → ERHI 10-30 00:19 → 2NB 10-30 00:19 → ENRESERV 10-30 01:46 → 2NB 10-30 02:31 → ENPENDDIS 11-01 10:08 → 2NB 11-01 11:10
PROVIDERS: Physician Assistant Medical
DX: M54.89 Other dorsalgia (principal); R07.89 Other chest pain; I10 Essential (primary) hypertension; E78.5 Hyperlipidemia, unspecified; E11.9 Type 2 diabetes mellitus without complications; Z79.84 Long term (current) use of oral hypoglycemic drugs; M51.37 Other intervertebral disc degeneration, lumbosacral region
CPT/HCPCS: 36592; 71046; 74174; 82436; 93005; 93010; 96360; 96361; 96372; 96374; 96375; 96376; G0378; J1644; J1815; J1885; J2270; J2405; J2930